=== PATIENT | female | born 1980 | race African-American/Black ===

== ENCOUNTER 2016-11-15 08:01 | Emergency (ER) | payer MEDICAID ==
[~2016-11-15] VITALS: Ht 167.6 cm; Wt 69.4 kg
[~2016-11-15 08:01] MED LIST: AVEENO ANTI IT TP; BENADRYL25 M3 PO; BENADRYL50 MG ORAL; GENTAK5 ML LEFT EYE; IBUPROFEN600 MG ORAL; KENALOG IN ORABA1 EA APPLIC; TRIAMCINOLONE A60 M1 TP; ZOFRAN4 MG ORAL
[2016-11-15 08:30] VITALS: BP 97/55
[2016-11-15] MEDS ORDERED: AVEENO ANTI IT TP (08:48)
[2016-11-15] MEDS ORDERED: KENALOG IN ORABA1 EA APPLIC (08:48)
[2016-11-15 09:00] VITALS: BP 97/55
--- NOTE | 2016-11-15 09:16 | Emergency Room Report ---
History of Present Illness General Chief Complaint: Skin Rash/Abscess Source: Patient Present Illness HPI 36YOF with 2 months of rash to chest. States no change in size/area of rash. Denies assoc fever/chills, vesicles or blisters. Recently traveled from [facility] but not sure as to actual onset of rash in relation to travel. Denies new soap , detergent, pets. No oral involvement. No rash anywhere else. States had something similar in 2013, and was seen here. Allergies: Coded Allergies: No Known Allergies (Unverified , 04/07/14) Patient History Past Medical History: none Past Surgical History: none Pertinent Family History: none Social History: Denies: alcohol use, drug use, smoking Last Menstrual Period: 11/06/16 Now: No Immunizations: UTD Reviewed Nursing Documentation: PMH: Agreed, PSxH: Agreed Nursing Documentation-PMH Past Medical History: No Stated History Review of Systems All Other Systems: negative except mentioned in HPI Physical Exam Vital Signs Date Time Temp Pulse Resp B/P Pulse Ox O2 Delivery O2 Flow Rate FiO2 11/15/16 08:10 97.2 82 15 97/55 99 Room Air Sp02 EP Interpretation: reviewed, normal General Appearance: normal inspection, well appearing, no apparent distress, alert, GCS 15, non-toxic Head: normocephalic, atraumatic Eyes: bilateral eye EOMI, bilateral eye PERRL ENT: normal ENT inspection, hearing grossly normal, normal voice Neck: normal inspection, full range of motion, supple, no bony tend Respiratory: normal inspection, lungs clear, normal breath sounds, no rhonchi, no respiratory distress, no retraction, no accessory muscle use, no wheezing Cardiovascular #1: regular rate, rhythm, no edema Gastrointestinal: normal inspection, normal bowel sounds, non tender, soft, no guarding, no hernia Genitourinary: no CVA tenderness Musculoskeletal: normal inspection, back normal, normal range of motion, Matt' s Sign negative Neurologic: normal inspection, alert, oriented x3, responsive, contracts administrator III-XII nml as tested, motor strength/tone normal, speech normal Psychiatric: normal inspection, judgement/insight normal, mood/affect normal Skin: normal color, warm/dry, palpation normal, well hydrated, normal turgor, other - upper right chest: 4-5cm irregular bordered area of multiple papules, some with white-heads. No underyling erythema base. No vesicles. No blistering. Nontender. Lymphatic: normal inspection Medical Decision Making Diagnostic Impression: Primary Impression: Rash and nonspecific skin eruption ER Course DDx Acne, contact dermatitis, pityriasis rosea, heat rash Unlikely contact dermatitis or pityriasis given duration, no change in area Unlikely heat rash or contact derm because no involved inflammation or erythema Given whiteheads, possibly acne/pimples No vesicles to signify that this could be zoster No cellulitis Will try trial of low dose steroid Advised PMD f[place] for Derm referral Last Vital Signs Date Time Temp Pulse Resp B/P Pulse Ox O2 Delivery O2 Flow Rate FiO2 11/15/16 08:30 97.2 82 15 97/55 99 Room Air Status: improved Disposition: XFER TO PSYCH HOSP/UNIT Condition: Improved Scripts Pramoxine Hcl/Calamine (AVEENO ANTI-ITCH LOTION) 118 Ml Lotion 118 ML TP EVERY 12 HOURS, #120 ML Prov: JACQUELINE FROD M.D. 11/15/16 Triamcinolone (Triamcinolone Acetonide) 1 Ea Tube 1 EA APPLIC BID for 7 Days, TUBE Prov: JACQUELINE FORD M.D. 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 Nov 15, 2016 09:16
== END 2016-11-15 09:00 | disposition home or self-care (01) ==
LOC: EMR 08:59
DX: R21 Rash and other nonspecific skin eruption (principal); R23.8 Other skin changes
CPT/HCPCS: 99284